=== PATIENT | female | born 1995 | race Caucasian/White ===

== ENCOUNTER 2017-10-15 22:51 | Emergency (ER) | payer BC, SELFPAY ==
[2017-10-15] MEDS ORDERED: Famotidine 20 MG TAB ONE (23:03)
[2017-10-15] MEDS ORDERED: diphenhydrAMINE 25 MG CAP ONE (23:03)
== END 2017-10-16 00:02 | disposition home or self-care (01) ==
LOC: SCSER 22:51
DX: L50.0 Allergic urticaria (principal); L55.0 Sunburn of first degree; F41.9 Anxiety disorder, unspecified
CPT/HCPCS: 99283